=== PATIENT | male | born 1985 | race African-American/Black ===

== ENCOUNTER 2017-11-24 19:20 | Emergency (ER) | payer OTHER ==
[~2017-11-24] VITALS: Ht 190.5 cm; Wt 74.8 kg
[2017-11-24] MEDS ORDERED: ALBU90OI INH (20:05)
[2017-11-24] MEDS ORDERED: Zithromax250 MG PO (20:05)
[2017-11-24] MEDS ORDERED: ERYT1OIN BOTHEYES (20:05)
== END 2017-11-24 20:15 | disposition home or self-care (01) ==
LOC: ER 19:20
DX: H10.023 Other mucopurulent conjunctivitis, bilateral (principal); J18.9 Pneumonia, unspecified organism; F17.200 Nicotine dependence, unspecified, uncomplicated; Z88.8 Allergy status to other drugs, medicaments and biological substances; Z86.19 Personal history of other infectious and parasitic diseases
CPT/HCPCS: 71046; 94640; 99284